=== PATIENT | male | born 1975 | race Caucasian/White ===

== ENCOUNTER 2018-04-14 18:39 | Emergency (ER) | payer OTHER ==
[~2018-04-14] VITALS: Ht 172.7 cm; Wt 70.3 kg
[2018-04-14] MEDS ORDERED: ZANTAC150 M3 (18:52)
[2018-04-14] MEDS ORDERED: INMODIUN (18:53)
[2018-04-14] MEDS ORDERED: PNEU16DI2 (18:53)
== END 2018-04-14 22:28 | disposition home or self-care (01) ==
LOC: ER 18:39
DX: K52.9 Noninfective gastroenteritis and colitis, unspecified (principal); E86.0 Dehydration